=== PATIENT | male | born 1955 | race Caucasian/White ===

== ENCOUNTER 2016-12-13 23:40 | Emergency (ER) | payer SELFPAY ==
[2016-12-14 00:22] LABS: Bilirubin Negative (Negative); Blood, Urine Moderate (Negative); Glucose, Urine (Dipstick) Negative (Negative); Ketone, Urine Negative (Negative); Nitrite Negative (Negative); Protein, Urine (Dipstick) Negative (Neg-Trace); Urobilinogen 0.2 mg/dL (0.2-1.0)
[2016-12-14 00:29] LABS: Bacteria/HPF None Seen HPF (None Seen); RBC/HPF 0-3 HPF (0-3); Squamous Epithelial None Seen HPF (0-3); WBC/HPF None Seen HPF (0-3)
== END 2016-12-14 00:42 | disposition home or self-care (01) ==
LOC: NAV ERS 23:40
DX: R33.9 Retention of urine, unspecified (principal); I10 Essential (primary) hypertension; F17.210 Nicotine dependence, cigarettes, uncomplicated
CPT/HCPCS: 51703; 81003; 81015; 87086

== ENCOUNTER 2017-04-01 17:54 | Emergency (ER) | payer SELFPAY ==
[2017-04-01 18:48] LABS: #Basophils 0.1 thou/uL (0.0-0.2); #Eosinphils 0.2 thou/uL (0.0-0.7); #Lymphocytes 2.6 thou/uL (1.20-3.40); #Monocytes 0.4 thou/uL (0.11-0.59); #Neutrophils 6.1 thou/uL (1.40-6.50); %Basophils 1.1 % (0.0-1.0); %Eosinophils 2.6 % (0.0-10.0); %Lymphocytes 27.8 % (21.0-51.0); %Monocytes 4.7 % (0.0-10.0); %Neutrophils 63.9 % (42.0-75.0); Hemoglobin 15.5 g/dL (14.0-18.0); Mean Corpuscular HGB CONC 33.7 g/dL (32.0-36.0); Mean Corpuscular Hemoglobin 30.5 pg (27.0-31.0); Mean Corpuscular Volume 90.6 fl (80.0-94.0); Mean Platelet Volume 6.9 fL (7.4-10.4); Platelet Count 215 thou/uL (130-400); RBC Distribution Width 11.6 % (11.5-14.5); Red Blood Cell (RBC) Count 5.09 mill/uL (4.70-6.10); White Blood Cell (WBC) Count 9.5 thou/uL (4.8-10.8)
[2017-04-01] MEDS ORDERED: Acetaminophen 500 MG TAB ONE (18:51)
[2017-04-01 19:03] LABS: Anion Gap 17 mmol/L (10-20); BUN (Urea Nitrogen) 8 mg/dL (8.4-25.7); Calc. Creatinine Clearance 0 mL/min (70-130); Calcium 8.9 mg/dL (7.8-10.44); Carbon Dioxide 20 mmol/L (23-31); Chloride 103 mmol/L (98-107); Estimated GFR-MDRD Greater than 90; Glucose 112 mg/dL (80-115); Potassium 3.5 mmol/L (3.5-5.1); Sodium 136 mmol/L (136-145)
[2017-04-01 19:04] LABS: Bilirubin Negative (Negative); Blood, Urine Moderate (Negative); Clarity Clear (Clear); Glucose, Urine (Dipstick) Negative (Negative); Leukocyte Negative (Negative); Nitrite Negative (Negative); Protein, Urine (Dipstick) Negative (Neg-Trace); Urobilinogen 0.2 mg/dL (0.2-1.0)
[2017-04-01 19:07] LABS: Specific Gravity, Urine 1.006 (1.002-1.036)
[2017-04-01 19:16] LABS: Bacteria/HPF None Seen HPF (None Seen); Squamous Epithelial 0-3 HPF (0-3); WBC/HPF None Seen HPF (0-3)
== END 2017-04-01 20:39 | disposition home or self-care (01) ==
LOC: NAV ERS 17:54
DX: N40.1 Benign prostatic hyperplasia with lower urinary tract symptoms (principal); R33.8 Other retention of urine; J06.9 Acute upper respiratory infection, unspecified; I10 Essential (primary) hypertension; Z79.899 Other long term (current) drug therapy
CPT/HCPCS: 51703; 80048; 81003; 81015; 85025; 87086

== ENCOUNTER 2020-01-01 09:07 | Emergency (ER) | payer SELFPAY ==
--- NOTE | 2020-01-01 10:15 | RAD ---
RIGHT KNEE 4 VIEWS: Date: 01/01/2020 INDICATION: Right knee injury and pain. COMPARISON: None. FINDINGS: There is mild osteoarthrosis of the right knee. There is mild joint capsular distention. No acute fra cture or subluxation is demonstrated. There are vascular calcifications with the flexor soft tissues. IMPRESSION: 1. No acute osseous abnormality. 2. Mild joint capsular distention. POS: BH
== END 2020-01-01 10:12 | disposition home or self-care (01) ==
LOC: NAV ERS 09:07
DX: S83.91XA Sprain of unspecified site of right knee, initial encounter (principal); I10 Essential (primary) hypertension; M10.9 Gout, unspecified; F17.210 Nicotine dependence, cigarettes, uncomplicated; X50.0XXA Overexertion from strenuous movement or load, initial encounter

== ENCOUNTER 2020-07-15 10:37 | Outpatient (CLI) | payer SELFPAY ==
--- NOTE | 2020-07-15 11:14 | RAD ---
Radiograph left femur 2 views: HISTORY: 65-year-old male with left thigh pain FINDINGS: No fracture, permeative lesion, osteolytic lesion, osteoblastic lesion, or periostitis involving the femur. Atherosclerotic calcification of common femoral artery and superficial femoral artery. At least mild DJD of left hip. No high-grade DJD of knee. IMPRESSION: No osseous abnormality of the femoral shaft.
== END 2020-07-15 10:38 | disposition home or self-care (01) ==
LOC: NAV RAD 10:37
PROVIDERS: ATTEND Nurse Practitioner Family
DX: M79.652 Pain in left thigh (principal)

== ENCOUNTER 2020-10-25 12:08 | Emergency (ER) | payer MEDICARE ==
[2020-10-25] MEDS ORDERED: Ondansetron PF 4 MG/2 ML Vial ONE (13:03)
[2020-10-25] MEDS ORDERED: Morphine 4 MG/ML VIAL ONE (13:03)
[2020-10-25 13:44] LABS: #Basophils 0.1 thou/uL (0.0-0.2); #Eosinphils 0.3 thou/uL (0.0-0.7); #Lymphocytes 2.8 thou/uL (1.20-3.40); #Monocytes 0.5 thou/uL (0.11-0.59); #Neutrophils 6.6 thou/uL (1.40-6.50); %Basophils 1.2 % (0.0-1.0); %Lymphocytes 27.3 % (21.0-51.0); %Monocytes 4.5 % (0.0-10.0); Hemoglobin 12.5 g/dL (14.0-18.0); Mean Corpuscular HGB CONC 34.6 g/dL (32.0-36.0); Mean Corpuscular Hemoglobin 32.5 pg (27.0-31.0); Mean Corpuscular Volume 94.1 fL (78.0-98.0); Mean Platelet Volume 5.5 fL (7.4-10.4); Platelet Count 318 thou/uL (130-400); RBC Distribution Width 11.2 % (11.5-14.5); Red Blood Cell (RBC) Count 3.86 mill/uL (4.70-6.10); White Blood Cell (WBC) Count 10.3 thou/uL (4.8-10.8)
[2020-10-25 14:04] LABS: ALT (SGPT) 6 U/L (8-55); AST (SGOT) 10 U/L (5-34); Alkaline Phosphatase 118 U/L (40-110); Anion Gap 15 mmol/L (10-20); BUN (Urea Nitrogen) 10 mg/dL (8.4-25.7); Bilirubin, Total 0.8 mg/dL (0.2-1.2); Calc. Creatinine Clearance 0 mL/min (70-130); Calcium 9.3 mg/dL (7.8-10.44); Carbon Dioxide 25 mmol/L (23-31); Chloride 101 mmol/L (98-107); Globulin 3.6 g/dL (2.4-3.5); Glucose 101 mg/dL (80-115); Potassium 4.2 mmol/L (3.5-5.1); Protein, Total 7.6 g/dL (5.8-8.1); Sodium 137 mmol/L (136-145)
--- NOTE | 2020-10-25 14:06 | CT ---
CT pelvis noncontrast: 10/25/2020 HISTORY: 65-year-old male with history of prostate cancer presents with left hip and pelvic pain COMPARISON: 02/09/2018 FINDINGS: There is a new finding of a large, bone destroying mass of the left iliac bone, beginning at the acet abular roof, where there are multiple nondisplaced pathologic fractures, and extending into the midportion of the left iliac wing. The mass is at least 5.5 x 7 x 5 cm. A large portion of the left i liac bone occupied by the soft tissue density mass is completely destroyed. There are infiltrative, permeative components of bone extending into the anterior and posterior columns of the left acetabulu m. There is soft tissue thickening along the left obturator internus muscle. There is a septated, complex, approximately 4 x 4 0.5 x 2.5 cm moderately low attenuation circumscrib ed mass component anterior to the left femoral neck and head, just lateral to the left common femoral artery and vein, with septation, and density of approximately 20 Hounsfield units. The superior aspect of the left hip joint space is moderately or severely narrowed, and there is irre gularity of the articular surfaces of the femoral head and acetabular roof, in contrast to the contralateral right hip. Urinary bladder is distended. Mildly enlarged bilateral external iliac chain lymph nodes and bilateral inguinal lymph nodes, left t dougherty right. In the contralateral right perirectal space, there is a region of fat stranding consistent with edema , and, surrounding an approximately 5 x 1.5 x 5 cm ill-defined soft tissue density mass that is inseparable from the right vas deferens, and communicates with the seminal vesicle. Moderate degenerative disc disease and moderate facet osteoarthrosis with high-grade bilateral neural foraminal stenosis at L4-5 and L5-S1, and central spinal canal stenosis at L4-5. IMPRESSION: 1.) Large bone destroying mass of the left ilium, including destruction of left acetabular roof, wher e there are nondisplaced pathologic fractures. This is favored to represent malignant neoplastic tumor, such as metastasis (but not from prostate cancer). This is less likely to represent severe ost eomyelitis. 2) complex cystic mass anterior to the left femoral head and neck. Possibilities include cystic compo nent of neoplastic tumor versus less likely abscess. 3) severe osteoarthrosis of the superior aspect of the left hip joint, with severe joint space narrow ing and mild partial flattening of femoral head. 4) in the region of the contralateral right perirectal space, there is a mass associated with edema. Etiology is uncertain. Perhaps inflammatory or infectious process involving the vas deferens, but this is uncertain.
== END 2020-10-25 19:12 | disposition short-term general hospital (02) ==
LOC: NAV ERS 12:08
DX: R19.00 Intra-abdominal and pelvic swelling, mass and lump, unspecified site (principal); I10 Essential (primary) hypertension; F17.210 Nicotine dependence, cigarettes, uncomplicated; Z79.899 Other long term (current) drug therapy
CPT/HCPCS: 36415; 72192; 80053; 85025; 96374; 96375; J2270; J2405